=== PATIENT | male | born 1935 | race Caucasian/White ===

== ENCOUNTER → 2017-12-09 | Outpatient (CLI) | payer MEDICARE, BC, OTHER | LOC: M ST 11:07 | DX: R05 Cough (principal) | CPT/HCPCS: 74230 ==

== ENCOUNTER → 2018-02-10 | Outpatient (REF) | payer MEDICARE, BC, OTHER ==
[2018-02-10 14:50] LABS: URIC ACID 4.4 MG/DL (3.5-7.2)
== END ==
LOC: M LAB REF 14:16
DX: M10.9 Gout, unspecified (principal)
CPT/HCPCS: 84550

== ENCOUNTER → 2018-06-29 | Outpatient (CLI) | payer MEDICARE, BC, OTHER | LOC: M WUC 16:28 | DX: R05 Cough (principal) | CPT/HCPCS: 71046 ==

== ENCOUNTER → 2019-04-16 | Outpatient (REF) | payer MEDICARE, BC, OTHER | LOC: M LAB REF 12:38 | PROVIDERS: ATTEND Family Medicine | DX: M10.9 Gout, unspecified (principal) ==

== ENCOUNTER → 2020-08-18 | Outpatient (CLI) | payer SELFPAY | LOC: M LABSMTC 15:32 | PROVIDERS: ATTEND Pediatrics | DX: Z20.828 Contact with and (suspected) exposure to other viral communicable diseases (principal) ==

== ENCOUNTER 2021-01-21 17:40 | Emergency (ER) | payer MEDICARE, BC, OTHER ==
[~2021-01-21] VITALS: Ht 188 cm; Wt 106.6 kg
[2021-01-21] MEDS ORDERED: BOOSTRIX/ADACEL VACCINE (DIPHTH/PERTUSS/ACELL/TETANUS) 0.5ML SYR IM ONE (18:05)
[2021-01-21] MEDS ORDERED: METF500T13 PO (18:08)
[2021-01-21] MEDS ORDERED: ZYLO300T6 PO (18:08)
[2021-01-21] MEDS ORDERED: SITA50TAB PO (18:08)
[2021-01-21] MEDS ORDERED: LOSA50TA88 PO (18:08)
[2021-01-21] MEDS ORDERED: ATOR1TAB21 PO (18:08)
[2021-01-21] MEDS ORDERED: [UNRECOGNIZED DRUG - CODE] PO (18:08)
[2021-01-21] MEDS ORDERED: CETI10CA2 PO (18:08)
[2021-01-21] MEDS ORDERED: LIDOCAINE W/EPINEPHRINE 1% 20ML VIAL SC ONE (18:45)
[2021-01-21 18:56] LABS: BASO % 0.4 % (0.0-1.0); EOS # 0.2 10^3/uL (0.0-0.5); HEMATOCRIT 47.2 % (42.0-52.0); HEMOGLOBIN 15.4 g/dl (13.5-17.5); LYMPH # 1.1 10^3/uL (1.5-5.0); LYMPH % 14.9 % (24.0-44.0); MEAN CORPUSCULAR HEMOGLOBIN 32.1 pg (27.0-33.0); MEAN CORPUSCULAR HGB CONC 32.6 g/dl (32.0-36.5); MEAN CORPUSCULAR VOLUME 98.3 fl (80.0-96.0); MONO # 0.7 10^3/uL (0.0-0.8); MONO % 9.9 % (2.0-8.0); NEUTROPHILS # 5.4 10^3/uL (1.5-8.5); NEUTROPHILS % 72.3 % (36.0-66.0); PLATELET COUNT, AUTOMATED 204 10^3/uL (150-450); WHITE BLOOD COUNT 7.5 10^3/uL (4.0-10.0)
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
[2021-01-21 19:07] LABS: INR 1.08; PARTIAL THROMBOPLASTIN TIME 27.1 SECONDS (24.2-38.5); PROTHROMBIN TIME 14.2 SECONDS (12.5-14.3)
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
[2021-01-21 19:29] LABS: ALBUMIN 4.1 GM/DL (3.2-5.2); ALT/SGPT 29 U/L (12-78); BILIRUBIN,TOTAL 0.5 MG/DL (0.2-1.0); BLOOD UREA NITROGEN 20 MG/DL (7-18); CALCIUM LEVEL 9.9 MG/DL (8.8-10.2); CARBON DIOXIDE LEVEL 30 MEQ/L (21-32); CHLORIDE LEVEL 104 MEQ/L (98-107); CREATININE FOR GFR 1.08 MG/DL (0.70-1.30); GLOMERULAR FILTRATION RATE > 60.0 (>35); GLUCOSE, FASTING 133 MG/DL (70-100); SODIUM LEVEL 139 MEQ/L (136-145); TOTAL PROTEIN 7.9 GM/DL (6.4-8.2)
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
[2021-01-21] MEDS ORDERED: KETO10TAB PO (20:11)
[2021-01-21 20:35] VITALS: BP 162/80
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
== END 2021-01-21 20:40 | disposition home or self-care (01) ==
LOC: M ED 17:40
DX: S01.01XA Laceration without foreign body of scalp, initial encounter (principal); T14.8XXA Other injury of unspecified body region, initial encounter; V03.90XA Pedestrian on foot injured in collision with car, pick-up truck or van, unspecified whether traffic or nontraffic accident, initial encounter; Y92.481 Parking lot as the place of occurrence of the external cause; E11.9 Type 2 diabetes mellitus without complications; I10 Essential (primary) hypertension; M10.9 Gout, unspecified; K21.9 Gastro-esophageal reflux disease without esophagitis; I25.10 Atherosclerotic heart disease of native coronary artery without angina pectoris; Z79.899 Other long term (current) drug therapy; Z79.84 Long term (current) use of oral hypoglycemic drugs; Z88.0 Allergy status to penicillin; Z88.1 Allergy status to other antibiotic agents; Z88.2 Allergy status to sulfonamides; F17.210 Nicotine dependence, cigarettes, uncomplicated

== ENCOUNTER → 2021-03-19 | Outpatient (CLI) | payer MEDICARE, BC, OTHER ==
[~2021-03-19] MED LIST: ATOR1TAB21 PO; CETI10CA2 PO; KETO10TAB PO; LOSA50TA88 PO; METF500T13 PO; SITA50TAB PO; ZYLO300T6 PO; [UNRECOGNIZED DRUG - CODE] PO
[2021-03-19 20:12] LABS: FREE T4 1.05 NG/DL (0.76-1.46); RHEUMATOID FACTOR QUANT < 10.0 IU/ML (<15.0)
[2021-03-19 20:13] LABS: FOLATE 12.6 NG/ML; VITAMIN B12 LEVEL 278 PG/ML
[2021-03-19 20:35] LABS: HEMOGLOBIN A1c 6.6 %
[2021-03-20 11:16] LABS: ALBUMIN 4.44 GM/DL (3.29-5.55); ALBUMIN % 55.5 % (55.8-66.1); ALPHA-1-GLOBULIN % 3.1 % (2.9-4.9); ALPHA-1-GLOBULINS 0.25 GM/DL (0.17-0.41); ALPHA-2-GLOBULINS 0.74 GM/DL (0.42-0.99); ALPHA-2-GLOBULINS % 9.3 % (7.1-11.8); BETA-1-GLOBULINS 0.53 GM/DL (0.28-0.60); BETA-1-GLOBULINS % 6.6 % (4.7-7.2); BETA-2-GLOBULINS 0.54 GM/DL (0.19-0.55); BETA-2-GLOBULINS % 6.7 % (3.2-6.5); GAMMA GLOBULIN % 18.8 % (11.1-18.8)
[2021-03-24 19:16] LABS: ANTI DOUBLE STRAND-DNA AB 1 IU/mL (0-9); ANTINUCLEAR ANTIBODIES DIRECT Positive (Negative); RNP ANTIBODIES 0.4 AI (0.0-0.9); SJOGREN'S ANTI SS-A <0.2 AI (0.0-0.9); SJOGREN'S ANTI SS-B <0.2 AI (0.0-0.9); SMITH ANTIBODIES <0.2 AI (0.0-0.9); VITAMIN B1 LEVEL WHOLE BLOOD 156.6 nmol/L (66.5-200.0); VITAMIN B6,PYRIDOXAL PHOSPHATE 8.4 ug/L (5.3-46.7); VITAMIN E(GAMMA TOCOPHEROL) 2.1 mg/L (0.5-4.9)
[2021-03-26 13:42] LABS: DRVV SCREEN 52.9 SEC
[2021-03-26 13:43] LABS: PTT LUPUS TYPE ANTICOAG SCREEN 1.4 (0-1.2)
[2021-03-26 13:51] LABS: DRVV CONFIRM 41.5 SEC; LUPUS CONFIRM RATIO 1.1
[2021-03-26 13:52] LABS: NORMALIZED RATIO 1.27 (0.00-1.20)
[2021-03-29 16:15] LABS: HEXAGONAL PHASE PHOSPHOLIPID 0 sec (0-11)
== END ==
LOC: M WUC 11:49
PROVIDERS: ATTEND Psychiatry & Neurology Neurology
DX: G62.9 Polyneuropathy, unspecified (principal); E07.9 Disorder of thyroid, unspecified

== ENCOUNTER → 2021-08-04 | Outpatient (REF) | payer MEDICARE, OTHER ==
[2021-08-04 13:26] LABS: APPEARANCE, URINE CLEAR (CLEAR); BACTERIA, URINE AUTO NEGATIVE (NEGATIVE); BILIRUBIN, URINE AUTO NEGATIVE (NEGATIVE); BLOOD, URINE BLOOD NEGATIVE (NEGATIVE); COLOR, URINE STRAW (YELLOW); GLUCOSE, URINE (UA) AUTO NEGATIVE (NEGATIVE); KETONE, URINE AUTO NEGATIVE (NEGATIVE); LEUKOCYTE ESTERASE, URINE AUTO NEGATIVE (NEGATIVE); NITRITE, URINE AUTO NEGATIVE (NEGATIVE); PROTEIN, URINE AUTO 2+ mg/dL (NEGATIVE); RBC, URINE AUTO 0 /HPF (0-3); SPECIFIC GRAVITY URINE AUTO 1.005 (1.002-1.035); SQUAMOUS EPITHELIAL CELL UR AU 0 /HPF (0-6); UROBILINOGEN, URINE AUTO 0.2 mg/dL (0.0-2.0); WBC, URINE AUTO 0 /HPF (0-3)
[2021-08-04 13:50] LABS: BASO % 0.6 % (0.0-1.0); EOS # 0.2 10^3/uL (0.0-0.5); EOS % 3.1 % (0.0-3.0); HEMATOCRIT 47.1 % (42.0-52.0); LYMPH # 1.2 10^3/uL (1.5-5.0); LYMPH % 18.7 % (24.0-44.0); MEAN CORPUSCULAR HEMOGLOBIN 31.3 pg (27.0-33.0); MEAN CORPUSCULAR HGB CONC 31.8 g/dl (32.0-36.5); MEAN CORPUSCULAR VOLUME 98.3 fl (80.0-96.0); MONO # 0.7 10^3/uL (0.0-0.8); MONO % 10.7 % (2.0-8.0); NEUTROPHILS # 4.1 10^3/uL (1.5-8.5); NEUTROPHILS % 66.6 % (36.0-66.0); PLATELET COUNT, AUTOMATED 190 10^3/uL (150-450); RED BLOOD COUNT 4.79 10^6/uL (4.30-6.10); WHITE BLOOD COUNT 6.2 10^3/uL (4.0-10.0)
[2021-08-04 14:17] LABS: ERYTHROCYTE SEDIMENTATION RATE 12 mm/hr (0-20)
[2021-08-04 14:21] LABS: ALT/SGPT 33 U/L (12-78); BILIRUBIN,TOTAL 0.6 MG/DL (0.2-1.0); BLOOD UREA NITROGEN 16 MG/DL (7-18); CALCIUM LEVEL 9.7 MG/DL (8.8-10.2); CARBON DIOXIDE LEVEL 32 MEQ/L (21-32); CHLORIDE LEVEL 103 MEQ/L (98-107); COMPLEMENT C3 130 MG/DL (90-180); COMPLEMENT C4 22 MG/DL (10-40); CREATININE FOR GFR 1.06 MG/DL (0.70-1.30); GLOMERULAR FILTRATION RATE > 60.0 (>35); GLUCOSE, FASTING 129 MG/DL (70-100); POTASSIUM SERUM 3.5 MEQ/L (3.5-5.1); SODIUM LEVEL 140 MEQ/L (136-145)
[2021-08-04 14:23] LABS: CREATININE,RANDOM URINE < 13.0 MG/DL; TOTAL PROTEIN,RANDOM URINE 46.2 MG/DL (0.0-12.0)
== END ==
LOC: M SFHCRHEU 08:35
PROVIDERS: ATTEND Internal Medicine Rheumatology
DX: R76.8 Other specified abnormal immunological findings in serum (principal); R76.0 Raised antibody titer
CPT/HCPCS: 36415; 80053; 81001; 82570; 84156; 85025; 85613; 85652; 85732; 86140; 86160; G0463

== ENCOUNTER → 2021-09-24 | Outpatient (REF) | payer OTHER, MEDICARE ==
[~2021-09-24] MED LIST changes: +LOSA50TA28 PO; -LOSA50TA88 PO
== END ==
LOC: M LAB REF 16:08
PROVIDERS: ATTEND Family Medicine
DX: D51.9 Vitamin B12 deficiency anemia, unspecified (principal)

== ENCOUNTER → 2021-10-09 | Outpatient (CLI) | payer OTHER | LOC: M RAD 14:18 | PROVIDERS: ATTEND Family Medicine | DX: R33.9 Retention of urine, unspecified (principal) ==

== ENCOUNTER → 2022-05-10 | Outpatient (CLI) | payer OTHER | LOC: M WUC 10:27 | PROVIDERS: ATTEND Physician Assistant Medical | DX: M43.17 Spondylolisthesis, lumbosacral region (principal) ==

== ENCOUNTER → 2023-09-26 | Outpatient (REF) | payer OTHER | LOC: M LAB REF 12:09 | PROVIDERS: ATTEND Family Medicine | DX: I25.10 Atherosclerotic heart disease of native coronary artery without angina pectoris (principal) ==

== ENCOUNTER → 2023-11-30 | Outpatient (CLI) | payer OTHER ==
[~2023-11-30] MED LIST changes: +BARIUM SULFATE 700 MG TABLET (E-Z-DISK) As Ordered ONE; +E-Z-PAQUE 96% w/w SUSP 176GM BTL As Ordered ONE; +VARIBAR NECTAR 40% w/v 240ML SUSP BTL As Ordered ONE; +VARIBAR PUDDING 40% w/v 230ML TUBE As Ordered ONE
== END ==
LOC: M RAD 12:50
PROVIDERS: ATTEND Family Medicine
DX: R05.9 Cough, unspecified (principal)

== ENCOUNTER → 2024-02-03 | Outpatient (CLI) | payer OTHER ==
[~2024-02-03] MED LIST changes: -BARIUM SULFATE 700 MG TABLET (E-Z-DISK) As Ordered ONE; -E-Z-PAQUE 96% w/w SUSP 176GM BTL As Ordered ONE; -VARIBAR NECTAR 40% w/v 240ML SUSP BTL As Ordered ONE; -VARIBAR PUDDING 40% w/v 230ML TUBE As Ordered ONE
== END ==
LOC: M WUC 14:18
PROVIDERS: ATTEND Family Medicine
DX: R05.9 Cough, unspecified (principal)

== ENCOUNTER → 2024-02-16 | Outpatient (CLI) | payer OTHER | LOC: M PLAIMG 13:16 | PROVIDERS: ATTEND Family Medicine | DX: I71.20 Thoracic aortic aneurysm, without rupture, unspecified (principal) ==

== ENCOUNTER → 2024-03-20 | Outpatient (REF) | payer OTHER ==
[2024-03-20 17:44] LABS: PERCENT SATURATION 12.7 % (19.7-50.0)
[2024-03-20 17:45] LABS: FOLATE 14.9 NG/ML (>5.4)
[2024-03-20 17:46] LABS: FERRITIN 7.1 NG/ML (10.5-307.3)
== END ==
LOC: M LAB REF 16:27
PROVIDERS: ATTEND Family Medicine
DX: D64.9 Anemia, unspecified (principal); R53.83 Other fatigue; N18.31 Chronic kidney disease, stage 3a

== ENCOUNTER → 2024-07-09 | Outpatient (REF) | payer OTHER ==
[2024-07-09 17:13] LABS: CK-MB VALUE MASS 3.6 NG/ML (<3.6)
[2024-07-09 17:14] LABS: MB/CK RELATIVE INDEX 1.69 (< OR =4)
== END ==
LOC: M LAB REF 16:18
PROVIDERS: ATTEND Internal Medicine
DX: R07.9 Chest pain, unspecified (principal)

== ENCOUNTER 2024-09-12 10:05 | Observation (INO) | payer MEDICARE, OTHER ==
[~2024-09-12] VITALS: Ht 188 cm; Wt 105.0 kg
[2024-09-12] MEDS: ENOXAPARIN 40MG/0.4ML SYRINGE (J1650 PER 10MG) SC SCH (09:00)
[2024-09-12] MEDS: ACETAMINOPHEN 325 MG TAB PO ONE (10:49)
[2024-09-12] MEDS: dexAMETHasone 20MG/5ML VIAL IV ONE (10:49)
[2024-09-12 11:07] LABS: BASO % 0.3 % (0.0-1.0); EOS # 0.1 10^3/uL (0.0-0.5); EOS % 1.4 % (0.0-3.0); HEMATOCRIT 41.1 % (42.0-52.0); HEMOGLOBIN 13.4 g/dl (13.5-17.5); LYMPH # 0.7 10^3/uL (1.5-5.0); LYMPH % 10.3 % (24.0-44.0); MEAN CORPUSCULAR HEMOGLOBIN 29.8 pg (27.0-33.0); MEAN CORPUSCULAR HGB CONC 32.6 g/dl (32.0-36.5); MEAN CORPUSCULAR VOLUME 91.3 fl (80.0-96.0); MONO # 0.9 10^3/uL (0.0-0.8); MONO % 14.3 % (2.0-8.0); NEUTROPHILS # 4.8 10^3/uL (1.5-8.5); NEUTROPHILS % 73.5 % (36.0-66.0); PLATELET COUNT, AUTOMATED 181 10^3/uL (150-450); WHITE BLOOD COUNT 6.5 10^3/uL (4.0-10.0)
[2024-09-12 11:35] LABS: ALBUMIN 3.7 G/DL (3.2-5.2); ALKALINE PHOSPHATASE 79 U/L (40-129); ALT/SGPT 17 U/L (7.0-40); AST/SGOT 22 U/L (<34); BILIRUBIN,DIRECT 0.2 MG/DL (<0.4); BILIRUBIN,TOTAL 0.5 MG/DL (0.3-1.2); BLOOD UREA NITROGEN 16 MG/DL (9-23); CALCIUM LEVEL 8.8 MG/DL (8.3-10.6); CARBON DIOXIDE LEVEL 29 MMOL/L (20-31); CHLORIDE LEVEL 102 MMOL/L (98-107); CREATININE FOR GFR 0.94 MG/DL (0.70-1.30); GLOMERULAR FILTRATION RATE > 60.0 (>35); GLUCOSE, FASTING 156 MG/DL (74-106); SODIUM LEVEL 139 MMOL/L (136-145); TOTAL PROTEIN 7.4 G/DL (5.7-8.2)
[2024-09-12] MEDS: IPRATROPIUM 0.5MG/ALBUTEROL 2.5MG INH SOL UD 3ML (DUONEB) NEB PRN (12:58)
[2024-09-12] MEDS ORDERED: GLUCOSE 4 GM CHEW PO PRN (13:15)
[2024-09-12] MEDS ORDERED: DEXTROSE 50% 50ML SYRINGE IV PRN (13:15)
[2024-09-12] MEDS ORDERED: GLUCAGON INJ 1MG VIAL SC PRN (13:15)
[2024-09-12] MEDS ORDERED: FURO20TA2 PO (13:16)
[2024-09-12] MEDS ORDERED: ASPI-1 PO (13:16)
[2024-09-12] MEDS ORDERED: FAMO40TA3 PO (13:16)
[2024-09-12] MEDS ORDERED: GABA-1171 PO (13:16)
[2024-09-12] MEDS ORDERED: TAMS1CAP17 PO (13:16)
[2024-09-12] MEDS ORDERED: FERR325T19 PO (13:16)
[2024-09-12] MEDS ORDERED: ACET-683 PO (13:16)
[2024-09-12] MEDS ORDERED: SPIR-10 PO (13:16)
[2024-09-12] MEDS ORDERED: HOME MED LIST COMPLETE! XX SCH (13:20)
[2024-09-12 14:53] VITALS: BP 153/86; TEMP 97.7; O2SAT 93
[2024-09-12] MEDS ORDERED: COMBIVENT RESPIMAT 100-20MCG INHALER 4GM INH PRN (15:45)
[2024-09-12 16:23] LABS: PROCALCITONIN 0.04 ng/ml
[2024-09-12 16:25] LABS: CPK CREATINE PHOSPHOKINASE 102 U/L (46-171)
[2024-09-12] MEDS: GABAPENTIN 100 MG CAP PO SCH (17:29)
[2024-09-12] MEDS: INSULIN LISPRO (NovoLOG) PER UNIT SC SCH ×2 (17:29→20:13)
[2024-09-12 18:41] VITALS: O2SAT 93
[2024-09-12] MEDS: REMDESIVIR 200 MG in NS 250 ML IV ONE (18:47)
[2024-09-12 19:54] VITALS: BP 170/94; TEMP 97.9; O2SAT 94
[2024-09-12] MEDS: ACETAMINOPHEN 325 MG TAB PO PRN (19:58)
[2024-09-12] MEDS: FAMOTIDINE 20 MG TAB PO SCH (20:00)
[2024-09-12] MEDS: guaiFENesin ER TABLET 600 MG TAB PO SCH (20:00)
[2024-09-12] MEDS: SPIRONOLACTONE 12.5MG PER 1/2 TABLET PO SCH (20:00)
[2024-09-12 20:01] VITALS: BP 170/94
[2024-09-12] MEDS: FERROUS SULFATE 325MG TAB PO SCH (20:01)
[2024-09-12] MEDS: LOSARTAN 50MG TABLET PO SCH (20:01)
[2024-09-12] MEDS: COMBIVENT RESPIMAT 100-20MCG INHALER 4GM INH SCH (21:02)
[2024-09-12 23:27] VITALS: BP 172/95; TEMP 98.1; O2SAT 93
[2024-09-13 03:16] VITALS: BP 168/84; TEMP 97.3; O2SAT 92
[2024-09-13 05:50] LABS: BASO % 0.1 % (0.0-1.0); HEMATOCRIT 42.8 % (42.0-52.0); HEMOGLOBIN 13.7 g/dl (13.5-17.5); LYMPH # 0.8 10^3/uL (1.5-5.0); LYMPH % 11.4 % (24.0-44.0); MEAN CORPUSCULAR HEMOGLOBIN 29.3 pg (27.0-33.0); MEAN CORPUSCULAR VOLUME 91.5 fl (80.0-96.0); MONO % 14.3 % (2.0-8.0); NEUTROPHILS # 5.3 10^3/uL (1.5-8.5); NEUTROPHILS % 74.1 % (36.0-66.0); PLATELET COUNT, AUTOMATED 200 10^3/uL (150-450); RED BLOOD COUNT 4.68 10^6/uL (4.30-6.10); WHITE BLOOD COUNT 7.2 10^3/uL (4.0-10.0)
[2024-09-13 06:24] LABS: BLOOD UREA NITROGEN 22 MG/DL (9-23); CARBON DIOXIDE LEVEL 29 MMOL/L (20-31); CHLORIDE LEVEL 104 MMOL/L (98-107); CREATININE FOR GFR 0.95 MG/DL (0.70-1.30); GLOMERULAR FILTRATION RATE > 60.0 (>35); GLUCOSE, FASTING 174 MG/DL (74-106); POTASSIUM SERUM 4.1 MMOL/L (3.5-5.1); SODIUM LEVEL 141 MMOL/L (136-145)
[2024-09-13 08:00] VITALS: BP 161/82; TEMP 97.3; O2SAT 93
[2024-09-13] MEDS: ATORVASTATIN 20 MG TAB PO SCH (08:40)
[2024-09-13] MEDS: ASPIRIN 325 MG TAB PO SCH (08:40)
[2024-09-13] MEDS: TAMSULOSIN 0.4 MG CAP PO SCH (08:40)
[2024-09-13] MEDS: allopurinoL 300 MG TAB PO SCH (08:40)
[2024-09-13] MEDS: dexAMETHasone 20MG/5ML VIAL IV SCH (08:51)
[2024-09-13 09:04] VITALS: O2SAT 92
[2024-09-13] MEDS ORDERED: MUCI1TAB18 PO (10:47)
[2024-09-13] MEDS ORDERED: DEXA4TA PO (10:47)
[2024-09-13] MEDS: LOSARTAN 50MG TABLET PO ONE (11:02)
[2024-09-13] MEDS: FUROSEMIDE 20 MG TAB PO ONE (11:03)
[2024-09-13 11:05] VITALS: BP 166/88
[2024-09-13 12:00] VITALS: BP 150/75; TEMP 97.5; O2SAT 93
[2024-09-13] MEDS ORDERED: REMDESIVIR 100 MG in NS 100 ML IV SCH (18:00)
== END 2024-09-13 13:54 | disposition home or self-care (01) ==
LOC: M ED 10:05 → EDBD 10:05 → M ED INP 10:06 → M MSPAV 14:53
PROVIDERS: ADMIT Internal Medicine; ATTEND Internal Medicine
DX: U07.1 COVID-19 (principal); E11.42 Type 2 diabetes mellitus with diabetic polyneuropathy; E78.5 Hyperlipidemia, unspecified; M10.9 Gout, unspecified; I25.10 Atherosclerotic heart disease of native coronary artery without angina pectoris; I10 Essential (primary) hypertension; J20.8 Acute bronchitis due to other specified organisms; I25.2 Old myocardial infarction; N40.0 Benign prostatic hyperplasia without lower urinary tract symptoms; K21.9 Gastro-esophageal reflux disease without esophagitis; M54.50 Low back pain, unspecified; G89.29 Other chronic pain; D50.9 Iron deficiency anemia, unspecified; Z88.0 Allergy status to penicillin; Z88.2 Allergy status to sulfonamides; Z87.891 Personal history of nicotine dependence; Z79.82 Long term (current) use of aspirin; Z79.84 Long term (current) use of oral hypoglycemic drugs; Z79.899 Other long term (current) drug therapy
CPT/HCPCS: 36415; 71045; 80048; 80076; 82550; 83605; 83735; 84145; 85025; 87040; 87486; 87581; 87633; 87798; 93005; 93041; 94640; 94664; 94760; 96372; 96374; 96375; 96376; 97161; 97165; 97530; 99285; G0378; J0248; J1100; J1650; J1815

== ENCOUNTER → 2024-11-12 | Outpatient (CLI) | payer MEDICARE ==
[~2024-11-12] MED LIST changes: +ACET-683 PO; +ASPI-1 PO; +DEXA4TA PO; +FAMO40TA3 PO; +FERR325T19 PO; +FURO20TA2 PO; +GABA-1171 PO; +MUCI1TAB18 PO; +SPIR-10 PO; +TAMS1CAP17 PO
== END ==
LOC: M RAD 14:08
PROVIDERS: ATTEND Family Medicine
DX: R93.429 Abnormal radiologic findings on diagnostic imaging of unspecified kidney (principal); R32 Unspecified urinary incontinence

== ENCOUNTER → 2024-12-13 | Outpatient (CLI) | payer MEDICARE | LOC: M RAD 11:09 | PROVIDERS: ATTEND Family Medicine | DX: R91.1 Solitary pulmonary nodule (principal) ==

== ENCOUNTER → 2025-07-02 | Outpatient (REF) | payer MEDICARE ==
[2025-07-02 18:24] LABS: VITAMIN B12 LEVEL 217.0 PG/ML (211-911)
== END ==
LOC: M LAB REF 17:11
PROVIDERS: ATTEND Family Medicine
DX: G62.9 Polyneuropathy, unspecified (principal); N18.31 Chronic kidney disease, stage 3a